=== PATIENT | female | born 1970 | race African-American/Black ===

== ENCOUNTER 2016-06-18 18:01 | Emergency (ER) | payer OTHER ==
[2016-06-18 18:10] VITALS: PULSE 77; TEMP 98.3; BMI 27.3
[2016-06-18 18:11] VITALS: BP 126/81
[2016-06-18] MEDS ORDERED: KETOROLAC TROMETHAMINE 60 MG/2 ML VIAL ONE (18:48)
[2016-06-18] MEDS ORDERED: CYCLOBENZAPRINE HCL 10 MG TABLET (FP) ONE (18:48)
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
== END 2016-06-18 19:22 | disposition home or self-care (01) ==
LOC: JERFT 18:01
DX: M54.5 Low back pain (principal); M54.6 Pain in thoracic spine; V43.52XA Car driver injured in collision with other type car in traffic accident, initial encounter; Y92.481 Parking lot as the place of occurrence of the external cause; Y93.89 Activity, other specified; Y99.8 Other external cause status
CPT/HCPCS: 99281-25

== ENCOUNTER 2017-01-26 10:01 | Emergency (ER) | payer OTHER ==
[2017-01-26 10:11] VITALS: BMI 28.5
--- NOTE | 2017-01-26 10:15 | PDOC ---
History of Present Illness - General Chief Complaint: Chest Pain Stated Complaint: PAIN/ CHEST, BACK Time Seen by Provider: 01/26/17 10:15 Past History - Past Medical History Allergies/Adverse Reactions: Allergies Allergy/AdvReac Type Severity Reaction Status Date / Time No Known Allergies Allergy Verified 01/26/17 10:07 Home Medications: Ambulatory Orders Naproxen [Naprosyn -] 500 mg PO BID #14 tablet 06/18/16 Cardiac Disorders: No COPD: No Other medical history: CERVICAL SPINE HERNIATION - Surgical History Abdominal Surgery: Yes (umbilical hernia repair as child) Cholecystectomy: Yes - Suicide/Smoking/Psychosocial Hx Smoking History: Never smoked Have you smoked in the past 12 months: No Hx Alcohol Use: No Drug/Substance Use Hx: No Substance Use Type: None Hx Substance Use Treatment: No *Physical Exam - Vital Signs Last Vital Signs Temp Pulse Resp BP Pulse Ox 98.1 F 66 19 113/65 99 01/26/17 10:07 01/26/17 10:07 01/26/17 10:07 01/26/17 10:07 01/26/17 10:07
--- NOTE | 2017-01-26 10:34 | PDOC ---
History of Present Illness - General History Source: Patient Exam Limitations: No Limitations - History of Present Illness Initial Comments: 01/26/17 11:24 The patient is a 46 year old female with significant PMH of cervical spine herniation who presents to the emergency department with constant right neck/ back discomfort radiating to her right chest that began 2 days ago. The patient states she was playing with her grandson who pushed her backwards while sitting causing her to feel right back discomfort. The patient notes the neck/back discomfort is worsened by movement. The patient denies any fall. The patient reports she took old naproxen with no relief of symptoms. The patient notes this back discomfort is similar to her muscle spasms in the past. The patient also states she has had some shortness of breath secondary to her neck/back discomfort. The patient denies numbness or tingling to the extremities headache and dizziness. Denies fever, chills, nausea, vomit, diarrhea and constipation. Allergies: NKA Past surgical history: None reported. Social history: No reported alcohol, cigarette, or drug use. <Bita Jolley - Last Filed: 01/26/17 12:19> <Chele Soto - Last Filed: 01/26/17 12:27> - General Chief Complaint: Chest Pain Stated Complaint: PAIN/ CHEST, BACK Time Seen by Provider: 01/26/17 10:15 Past History <Bita Jolley - Last Filed: 01/26/17 12:19> - Past Medical History Cardiac Disorders: No COPD: No Other medical history: CERVICAL SPINE HERNIATION - Surgical History Abdominal Surgery: Yes (umbilical hernia repair as child) Cholecystectomy: Yes - Suicide/Smoking/Psychosocial Hx Smoking History: Never smoked Have you smoked in the past 12 months: No Hx Alcohol Use: No Drug/Substance Use Hx: No Substance Use Type: None Hx Substance Use Treatment: No <Chele Soto - Last Filed: 01/26/17 12:27> - Past Medical History Allergies/Adverse Reactions: Allergies Allergy/AdvReac Type Severity Reaction Status Date / Time No Known Allergies Allergy Verified 01/26/17 10:07 Home Medications: Ambulatory Orders Naproxen [Naprosyn -] 500 mg PO BID PRN #14 tablet 01/26/17 Oxycodone HCl/Acetaminophen [Percocet 5-325 mg Tablet] 1 - 2 tab PO TID PRN #10 tab MDD 6 01/26/17 Review of Systems - Review of Systems Constitutional: No: Chills, Fever Respiratory: No: Shortness of Breath Cardiac (ROS): Yes: See HPI. No: Edema, Palpitations, Syncope ABD/GI: No: Nausea, Vomiting Musculoskeletal: Yes: Muscle Pain. No: Joint Pain Neurological: No: Headache, Tingling, Weakness All Other Systems: Reviewed and Negative <Chele Soto - Last Filed: 01/26/17 12:27> *Physical Exam - Vital Signs Last Vital Signs Temp Pulse Resp BP Pulse Ox 98.1 F 66 19 113/65 99 01/26/17 10:07 01/26/17 10:07 01/26/17 10:07 01/26/17 10:07 01/26/17 10:07 - Physical Exam Comments: 01/26/17 11:34 GENERAL: The patient is awake, alert, and fully oriented, in no acute distress. HEAD: Normal with no signs of trauma. EYES: Pupils equal, round and reactive to light, extraocular movements intact, sclera anicteric, conjunctiva clear with no pallor. ENT: Ears normal, nares patent, oropharynx clear without exudates. Moist mucous membranes. NECK: Normal range of motion, supple without lymphadenopathy, JVD, or masses. LUNGS: Breath sounds equal, clear to auscultation bilaterally. No wheeze/ crackles. HEART: Regular rate and rhythm, normal S1 and S2 without murmur or rub. ABDOMEN: Soft/nontender/nondistended. BS wnl. No guarding or rebound. No palpable masses. No hepatosplenomegaly. BACK: (+) Reproducible tenderness to the trapezium, no swelling or bruising. EXTREMITIES: Normal range of motion, no edema. No clubbing or cyanosis. No cords, erythema, or tenderness. NEUROLOGICAL: Cranial nerves II through XII grossly intact. Normal speech, normal gait. PSYCH: Normal mood, normal affect. SKIN: Warm, Dry, normal turgor, no rashes or lesions noted. <Bita Jolley - Last Filed: 01/26/17 12:19> - Vital Signs Last Vital Signs Temp Pulse Resp BP Pulse Ox 98.1 F 66 19 113/65 99 01/26/17 10:07 01/26/17 10:07 01/26/17 10:07 01/26/17 10:07 01/26/17 10:07 <Chele Soto - Last Filed: 01/26/17 12:27> Heart Score/ECG Review - History History: Slightly suspicious - Electrocardiogram EKG: Normal - Age Age: 45-65 - Risk Factors Based on the list above the patient has:: 1-2 risk factors #1 ECG reviewed & interpreted by me at: 10:05 General ECG Interpretation: Sinus Rhythm, Normal Rate (61), Normal Intervals ( qtc 412), No acute ischemic changes <Chele Soto - Last Filed: 01/26/17 12:27> ED Treatment Course - Medications Given in the ED: ED Medications Discontinued Medications Generic Name Dose Route Start Last Admin Trade Name Freq PRN Reason Stop Dose Admin Ketorolac Tromethamine 60 mg 01/26/17 10:38 01/26/17 11:05 Toradol Injection - IM 01/26/17 10:39 Not Given ONCE ONE Tramadol HCl 50 mg 01/26/17 10:38 01/26/17 10:45 Ultram - PO 01/26/17 10:39 50 mg ONCE ONE Administration <Bita Jolley - Last Filed: 01/26/17 12:19> Medical Decision Making - Medical Decision Making Exam: Chest PA & LAT Who interpreted: Dr. Eli Reviewed by: Dr. Soto Impression: No definite interval change is identified in comparison to a previous radiographic study of 03/06/2013. <Bita Jolley - Last Filed: 01/26/17 12:19> - Medical Decision Making 01/26/17 10:55 A portion of this note was documented by scribe services under my direction. I have reviewed the details of the note, within reason, and agree with the documentation with the following case summary and management plan written by me. 46-year-old female with no significant past medical history other than episodes of muscle strain in the past presents with 2 days of constant right neck/back discomfort. Patient was playing with her grandson rocking back and forth, felt a twinge in her right back that has been worsening since then. Constant, sharp, radiating to her right chest, worse with any positional changes, not associated with exertion. At baseline, has on limited exercise tolerance. Denies any direct injury, took some old naproxen without relief, presents for evaluation. States pain is similar to past muscle spasm pain she has had. No PE risk factors or symptoms of DVT. Vital signs normal. Well-appearing, seated on stretcher, on her cell phone Some limited range of motion on rotation of her neck secondary to discomfort Reproducible discomfort to palpation over the right trapezius without swelling or ecchymosis Neurologically and neurovascularly intact Heart and lungs are clear No leg edema 46-year-old female presents with right trapezial muscle strain, no red flags on history or physical exam to suggest primary cardiac pulmonary process. Neurologically intact. Chest x-ray, EKG Declines Toradol, trial of tramadol Reassess and dispo accordingly 01/26/17 12:21 CXR without acute pathology. Feels slightly better, no respiratory distress. Agrees with d/c plan, prefers percocet over tramadol. Family at bedside will bring her home. understands return criteria. <Chele Soto - Last Filed: 01/26/17 12:27> *DC/Admit/Observation/Transfer - Attestations Scribe Attestion: 01/26/17 11:34 Documentation prepared by Bita Jolley, acting as medical lab assistant for Chele Soto MD. <Bita Jolley - Last Filed: 01/26/17 12:19> <Chele Soto - Last Filed: 01/26/17 12:27> Diagnosis at time of Disposition: Strain of right trapezius muscle Qualifiers: Encounter type: initial encounter Qualified Code(s): S46.811A - Strain of other muscles, fascia and tendons at shoulder and upper arm level, right arm, initial encounter - Discharge Dispostion Disposition: HOME Condition at time of disposition: Improved - Prescriptions Prescriptions: Naproxen [Naprosyn -] 500 mg PO BID PRN #14 tablet PRN Reason: Pain Oxycodone HCl/Acetaminophen [Percocet 5-325 mg Tablet] 1 - 2 tab PO TID PRN #10 tab MDD 6 PRN Reason: Pain - Referrals Referrals: Tevin David MD [Staff Physician] - - Patient Instructions Printed Discharge Instructions: Whiplash Additional Instructions: Activity as tolerated. Stay hydrated. A chest x-ray today was normal. Your symptoms are likely due to muscle strain, but there could be an element of herniated disc as well. Take naproxen 500 mg as prescribed twice daily for 3 days, preferably with food. Take Percocet as prescribed as needed for severe pain, Percocet can make you lightheaded so take proper precautions. Continue your medications as previously prescribed by your physician. You should follow up with your primary doctor or Dr. David as soon as possible regarding today's emergency department visit. If symptoms persist, MRI imaging can be useful in determining the cause. Return to the emergency department for any new or concerning symptoms, particularly persistent or worsening pain, numbness or weakness in your arm, chest pain or difficulty breathing.
[2017-01-26] MEDS ORDERED: traMADol HCL 50 MG TABLET PO ONE (10:38)
[2017-01-26] MEDS ORDERED: KETOROLAC TROMETHAMINE 60 MG/2 ML VIAL IM ONE (10:38)
[2017-01-26] MEDS ORDERED: traMADol HCL 50 MG TABLET ONE (10:41)
[2017-01-26] MEDS ORDERED: KETOROLAC TROMETHAMINE 60 MG/2 ML VIAL ONE (10:41)
[2017-01-26 12:53] VITALS: BP 120/62; PULSE 73; TEMP 97.8
--- NOTE | 2017-01-26 14:36 | EKG ---
Test Reason : Blood Pressure : / mmHG Vent. Rate : 061 BPM Atrial Rate : 061 BPM P-R Int : 132 ms QRS Dur : 086 ms QT Int : 410 ms P-R-T Axes : 019 065 054 degrees QTc Int : 412 ms NORMAL SINUS RHYTHM NORMAL ECG WHEN COMPARED WITH ECG OF 06-MAR-2013 07:23, NO SIGNIFICANT CHANGE WAS FOUND Confirmed by ALLA RICHARDS MD ([id number]) on 01/26/2017 2:36:02 PM Referred By: Confirmed By:ALLA RICHARDS MD
== END 2017-01-26 12:52 | disposition home or self-care (01) ==
LOC: JER 10:01
DX: S46.811A Strain of other muscles, fascia and tendons at shoulder and upper arm level, right arm, initial encounter (principal); Q05.5 Cervical spina bifida without hydrocephalus
CPT/HCPCS: 71020-TC; 93005; 93010; 99283-25

== ENCOUNTER 2017-01-30 14:38 | Emergency (ER) | payer OTHER ==
[2017-01-30 14:50] VITALS: BP 100/71; PULSE 69; TEMP 98.4; BMI 28.5
[2017-01-30] MEDS ORDERED: diazePAM 5 MG TABLET PO ONE (15:29)
[2017-01-30] MEDS ORDERED: KETOROLAC TROMETHAMINE 60 MG/2 ML VIAL IM ONE (15:29)
--- NOTE | 2017-01-30 15:30 | PDOC ---
"History of Present Illness - General Chief Complaint: Pain, Acute Stated Complaint: NECK PAIN Time Seen by Provider: 01/30/17 15:04 History Source: Patient Exam Limitations: No Limitations - History of Present Illness Initial Comments: 01/30/17 15:55 My chief complaint: Worsening right-sided neck pain History of present illness: Patient is a 46-year-old female with a history of cervical and lumbar herniation here for the second time due to pain to her right neck that worsened today. Patient was originally seen here on 01/26/2017 due to her grandchild jumping on her back and neck area causing pain to the area. Patient reports that she had been taking Naprosyn, Percocet with some relief of pain yesterday however today patient woke and pain is worse on right lateral neck patient also feels slight tingling in her fourth and fifth digits. Patient reports that she had been on pain management but has not been on for quite some time presently. Patient denies doing anything strenuous yesterday that might have caused pain to be worse today. Patient denies any chance of . Timing/Duration: getting worse Severity: severe Past History - Past Medical History Allergies/Adverse Reactions: Allergies Allergy/AdvReac Type Severity Reaction Status Date / Time No Known Allergies Allergy Verified 01/30/17 14:45 Home Medications: Ambulatory Orders Cyclobenzaprine HCl [Flexeril -] 10 mg PO Q8H PRN #21 tablet 01/30/17 Naproxen [Naprosyn -] 500 mg PO BID PRN #14 tablet 01/30/17 Oxycodone HCl/Acetaminophen [Percocet 5-325 mg Tablet] 1 - 2 tab PO Q6H PRN #20 tablet MDD 8 01/30/17 Cardiac Disorders: No COPD: No Other medical history: herniated disc on neck and back - Surgical History Abdominal Surgery: Yes (umbilical hernia repair as child) Cholecystectomy: Yes - Suicide/Smoking/Psychosocial Hx Smoking History: Never smoked Have you smoked in the past 12 months: No Hx Alcohol Use: No Drug/Substance Use Hx: No Substance Use Type: None Hx Substance Use Treatment: No Review of Systems - Review of Systems Able to Perform ROS?: Yes Constitutional: No: Symptoms Reported HEENTM: No: Symptoms Reported Respiratory: No: Symptoms reported Cardiac (ROS): No: Symptoms Reported ABD/GI: No: Symptoms Reported : No: Symptoms Reported Musculoskeletal: Yes: Neck Pain (right sided ) Integumentary: No: Symptoms Reported Neurological: Yes: Tingling (rt. 4th & 5th fingers) *Physical Exam - Vital Signs Last Vital Signs Temp Pulse Resp BP Pulse Ox 98.4 F 69 18 100/71 100 01/30/17 14:46 01/30/17 14:46 01/30/17 14:46 01/30/17 14:46 01/30/17 14:46 - Physical Exam General Appearance: Yes: Appropriately Dressed Neck: positive: Tender (right lateral ), Decreased range of motion, Tender lateral (rt. lateral neck ). negative: Lymphadenopathy (R), Lymphadenopathy (L) , Rigidity, Tender midline Respiratory/Chest: positive: Lungs Clear, Normal Breath Sounds. negative: Chest Tender, Respiratory Distress Cardiovascular: positive: Regular Rhythm, Regular Rate, S1, S2 Integumentary: positive: Normal Color Neurologic: positive: Alert, Normal Response, Motor Strength 5/5 (upper b/l), Responsive. negative: Respond to painful stimul, Numbness, Sensory Deficit ( rt. arm, hand ) Medical Decision Making - Medical Decision Making Patient is a 46-year-old female with a history of cervical and lumbar herniation here for the second time due to pain to her right neck that worsened today. Patient was originally seen here on 01/26/2017 due to her grandchild jumping on her back and neck area causing pain to the area. Patient reports that she had been taking Naprosyn, Percocet with some relief of pain yesterday however today patient woke and pain is worse on right lateral neck patient also feels slight tingling in her fourth and fifth digits. Patient denies any radiation of pain down her right arm presently. Patient reports that she had been on pain management but has not been on for quite some time presently. Patient denies doing anything strenuous yesterday that might have caused pain to be worse today. Patient denies any chance of . She reports some muscle spasming of her right lateral neck today. right lateral neck pain PLAN: valium 5 mg po now Toradol 60 mg IM now follow up with your orthpedist [employer] checked 01/30/17 15:55 Drug Utilization Report below displays all of the controlled substance prescriptions, if any, that your patient has filled in the last twelve months. The information displayed on this report is compiled from pharmacy submissions to the Department, and accurately reflects the information as submitted by the pharmacies. This report was requested by: Shayy Malagon | Reference #: [id number] Others' Prescriptions Patient Name: Zainab Meneses Date: 1970 Address: [address] [place] [address] Sex: Female Rx Written Rx Dispensed Drug Quantity Days Supply Prescriber Name 01/26/2017 01/27/2017 oxycodone-acetaminophen 5-325 mg tab 10 1 Chele Soto) 01/30/17 15:57 01/30/17 16:30 pt. continues to c/o pain will give percocet 5mg/325mg 01/30/17 19:59 naprosyn 500 mg bid prn pain # 13 tabs percocet 5mg/325 mg 1-2tabs q 6 hr prn pain #20 tabs *DC/Admit/Observation/Transfer Diagnosis at time of Disposition: Neck pain on right side - Discharge Dispostion Disposition: HOME Condition at time of disposition: Stable - Prescriptions Prescriptions: Cyclobenzaprine HCl [Flexeril -] 10 mg PO Q8H PRN #21 tablet PRN Reason: Muscle Spasms Naproxen [Naprosyn -] 500 mg PO BID PRN #14 tablet PRN Reason: Pain Oxycodone HCl/Acetaminophen [Percocet 5-325 mg Tablet] 1 - 2 tab PO Q6H PRN #20 tablet MDD 8 PRN Reason: Pain - Referrals - Patient Instructions Additional Instructions: Follow up with your orthopedist if as soon as possible for further evaluation Avoid lifting anything or any strenuous activities Return to emergency room if symptoms worsen Patient voiced understanding of discharge instructions and all questions were answered - Post Discharge Activity"
[2017-01-30] MEDS ORDERED: diazePAM 5 MG TABLET ONE (15:39)
[2017-01-30] MEDS ORDERED: KETOROLAC TROMETHAMINE 60 MG/2 ML VIAL ONE (15:39)
== END 2017-01-30 16:55 | disposition home or self-care (01) ==
LOC: JERFT 14:38
PROC: 3E0233Z Introduction of Anti-inflammatory into Muscle, Percutaneous Approach (ICD-10-PCS; principal; 2017-01-30)
DX: M54.2 Cervicalgia (principal)
CPT/HCPCS: 96372; 99281-25

== ENCOUNTER 2017-03-28 10:25 | Emergency (ER) | payer OTHER ==
[2017-03-28 10:31] VITALS: BP 122/68; PULSE 71; TEMP 98
--- NOTE | 2017-03-28 11:07 | PDOC ---
History of Present Illness - General Chief Complaint: Respiratory Stated Complaint: COUGH Time Seen by Provider: 03/28/17 11:06 Past History - Past Medical History Allergies/Adverse Reactions: Allergies Allergy/AdvReac Type Severity Reaction Status Date / Time No Known Allergies Allergy Verified 03/28/17 10:31 Home Medications: Ambulatory Orders Cyclobenzaprine HCl [Flexeril -] 10 mg PO Q8H PRN #21 tablet 01/30/17 Naproxen [Naprosyn -] 500 mg PO BID PRN #14 tablet 01/30/17 Oxycodone HCl/Acetaminophen [Percocet 5-325 mg Tablet] 1 - 2 tab PO Q6H PRN #20 tablet MDD 8 01/30/17 Cardiac Disorders: No COPD: No - Surgical History Abdominal Surgery: Yes (umbilical hernia repair as child) Cholecystectomy: Yes - Suicide/Smoking/Psychosocial Hx Smoking History: Never smoked Have you smoked in the past 12 months: No Hx Alcohol Use: No Drug/Substance Use Hx: No Substance Use Type: None Hx Substance Use Treatment: No *Physical Exam - Vital Signs Last Vital Signs Temp Pulse Resp BP Pulse Ox 98 F 71 18 122/68 99 03/28/17 10:28 03/28/17 10:28 03/28/17 10:28 03/28/17 10:28 03/28/17 10:28
[2017-03-28] MEDS ORDERED: ALBUTEROL SO4 2.5/IPRATROPIUM 0.5 INH SOL 3 ML VIAL.NEB. NEB ONE ×2 (11:12→11:21)
[2017-03-28] MEDS ORDERED: predniSONE 20 MG TABLET (UD) ONE (11:13)
[2017-03-28] MEDS ORDERED: predniSONE 20 MG TABLET (UD) PO ONE (11:22)
--- NOTE | 2017-03-28 11:28 | PDOC ---
History of Present Illness - General Chief Complaint: Respiratory Stated Complaint: COUGH Time Seen by Provider: 03/28/17 11:06 History Source: Patient Exam Limitations: No Limitations - History of Present Illness Initial Comments: 03/28/17 11:23 And came to emergency department with persistent cough 2 weeks. States 2-1/2 3 weeks ago all of her family was ill with a respiratory illness with cough, fevers, chills and body aches. Sounds as though was probable influenza type illness. Since that time patient has had persistent cough with no fevers. Timing/Duration: reports: constant Severity: reports: mild, moderate Associated Symptoms: reports: cough, fever/chills, nasal congestion Past History - Travel Traveled outside of the country in the last 30 days: No Close contact w/someone who was outside of country & ill: No - Past Medical History Allergies/Adverse Reactions: Allergies Allergy/AdvReac Type Severity Reaction Status Date / Time No Known Allergies Allergy Verified 03/28/17 10:31 Home Medications: Ambulatory Orders Cyclobenzaprine HCl [Flexeril -] 10 mg PO Q8H PRN #21 tablet 01/30/17 Naproxen [Naprosyn -] 500 mg PO BID PRN #14 tablet 01/30/17 Oxycodone HCl/Acetaminophen [Percocet 5-325 mg Tablet] 1 - 2 tab PO Q6H PRN #20 tablet MDD 8 01/30/17 Albuterol Sulfate Inhaler - [Ventolin HFA Inhaler -] 1 - 2 inh PO Q4H #1 inhaler 03/28/17 predniSONE [Deltasone -] 20 mg PO BID #8 tablet 03/28/17 Cardiac Disorders: No COPD: No - Surgical History Abdominal Surgery: Yes (umbilical hernia repair as child) Cholecystectomy: Yes - Suicide/Smoking/Psychosocial Hx Smoking History: Never smoked Have you smoked in the past 12 months: No Hx Alcohol Use: No Drug/Substance Use Hx: No Substance Use Type: None Hx Substance Use Treatment: No Review of Systems - Review of Systems Able to Perform ROS?: Yes Is the patient limited Hungarian proficient: Yes Constitutional: Yes: Symptoms Reported, See HPI, Malaise HEENTM: Yes: See HPI. No: Symptoms Reported Respiratory: Yes: Symptoms reported, See HPI, Cough, Wheezing Musculoskeletal: Yes: Symptoms Reported, See HPI Integumentary: No: Symptoms Reported Neurological: Yes: See HPI. No: Symptoms reported, Headache All Other Systems: Reviewed and Negative *Physical Exam - Vital Signs Last Vital Signs Temp Pulse Resp BP Pulse Ox 98 F 71 18 122/68 99 03/28/17 10:28 03/28/17 10:28 03/28/17 10:28 03/28/17 10:28 03/28/17 10:28 - Physical Exam General Appearance: Yes: Nourished, Appropriately Dressed, Apparent Distress, Mild Distress HEENT: positive: JAZMYNE, Normal ENT Inspection, TMs Normal, Pharynx Normal Neck: positive: Supple. negative: Lymphadenopathy (R), Lymphadenopathy (L) Respiratory/Chest: positive: Lungs Clear. 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, Fully Oriented, Alert, Normal Mood/ Affect, Normal Response, Motor Strength 5/5 Progress Note - Progress Note Progress Note: Persistent cough much improved after DuoNeb and prednisone, will continue albuterol inhaler and have follow-up with PMD *DC/Admit/Observation/Transfer Diagnosis at time of Disposition: Reactive airway disease with wheezing Qualifiers: Asthma severity: mild Asthma persistence: intermittent Asthma complication type : uncomplicated Qualified Code(s): J45.20 - Mild intermittent asthma, uncomplicated - Discharge Dispostion Disposition: HOME Condition at time of disposition: Stable Admit: No - Prescriptions Prescriptions: Albuterol Sulfate Inhaler - [Ventolin HFA Inhaler -] 1 - 2 inh PO Q4H #1 inhaler predniSONE [Deltasone -] 20 mg PO BID #8 tablet - Referrals - Patient Instructions Printed Discharge Instructions: DI for Reactive Airway Disease-Adult Additional Instructions: Rest, drink lots of fluids: Teas, water, soups, Pedialyte Saltwater gargles Steamy showers/seem to face break up mucus Avoid contact with others until fevers and cough resolved Lots of handwashing and good hygiene Continue [id number] medications for symptomatic relief Tylenol or Motrin for fever and pain Continue albuterol nebulizers every 4-6 hours for the next 2 days then as needed for continued cough Prednisone as directed until completed Followup with private physician in one to 2 days Return to emergency department / pediatric hospital for worsened symptoms, fevers, dehydration - Post Discharge Activity Forms/Work/School Notes: Back to Work
== END 2017-03-28 11:48 | disposition home or self-care (01) ==
LOC: JERFT 10:25
PROC: 3E0F7GC Introduction of Other Therapeutic Substance into Respiratory Tract, Via Natural or Artificial Opening (ICD-10-PCS; principal; 2017-03-28)
DX: J45.20 Mild intermittent asthma, uncomplicated (principal)
CPT/HCPCS: 94640; 99281-25

== ENCOUNTER 2017-05-04 09:12 | Day surgery (SDC) | payer OTHER ==
[2017-05-03 12:27] VITALS: BMI 29.9
[2017-05-04] MEDS ORDERED: PROPOFOL 20 ML ONE ×2 (09:45)
[2017-05-04 10:27] VITALS: TEMP 97.8
[2017-05-04 11:45] VITALS: BP 133/63; PULSE 70
[2017-05-04 12:26] LABS: ALBUMIN 4.2 g/dl (3.4-5.0); ALK PHOS 59 U/L (45-117); ANION GAP 6 (8-16); BILIRUBIN,DIRECT < 0.2 mg/dL (0.0-0.2); BILIRUBIN,TOTAL 0.4 mg/dL (0.2-1.0); BLOOD UREA NITROGEN 16 mg/dL (7-18); CALCIUM 8.9 mg/dL (8.5-10.1); CHLORIDE 107 mmol/L (98-107); CO2 25 mmol/L (21-32); CREATININE 1.1 mg/dL (0.55-1.02); GLUCOSE,RANDOM 93 mg/dL (74-106); POTASSIUM 4.7 mmol/L (3.5-5.1); SGOT/AST 29 U/L (15-37); SGPT/ALT 42 U/L (12-78); SODIUM 138 mmol/L (136-145)
[2017-05-05 06:06] LABS: HBSAG SCREEN Negative (Negative); HEP B CORE AB, TOT Negative (Negative)
[2017-05-05 08:07] LABS: SERUM IRON SATURATION 44 % (15-55); TOTAL IRON BINDING CAPACITY 371 ug/dL (250-450); UIBC 206 ug/dL (131-425)
[2017-05-06 16:28] LABS: ALPHA-1-ANTITRYPSIN 153 mg/dL (90-200)
== END 2017-05-04 11:45 | disposition home or self-care (01) ==
LOC: JASU-ENDO 09:12
PROVIDERS: ATTEND Internal Medicine Gastroenterology
PROC: 0DJD8ZZ Inspection of Lower Intestinal Tract, Via Natural or Artificial Opening Endoscopic (ICD-10-PCS; principal; 2017-05-04 10:15)
DX: Z12.11 Encounter for screening for malignant neoplasm of colon (principal); K64.8 Other hemorrhoids
CPT/HCPCS: 36415; 80048; 80076; 82103; 82104; 82390; 82728; 83516; 83540; 83550; 86038; 86704; 86706; 86708; 87340

== ENCOUNTER 2017-05-11 09:10 | Day surgery (SDC) | payer OTHER ==
[2017-05-10 14:00] VITALS: BMI 29.9
[2017-05-11] MEDS ORDERED: PROPOFOL 20 ML ONE ×2 (10:10)
[2017-05-11] MEDS ORDERED: LIDOCAINE HCL/PF 2% SDV 5ML VIAL ONE (10:10)
[2017-05-11 10:59] VITALS: TEMP 98.2
[2017-05-11 11:54] VITALS: BP 112/71; PULSE 60
--- NOTE | 2017-05-12 16:13 | PATH ---
Surgical Pathology Report Patient Name: BRANDIE FERRER [facility]. Rec. #: [id number] /Age/Gender: 1970 (Age: 47) / F Account: [id number] Location: U-ENDOSCOPY Taken: 05/11/2017 Received: 05/11/2017 Reported: 05/12/2017 Physicians: Yasmani Schreiber D.O. Specimen(s) Received A: BX ANTRUM EROSION B: BX BODY/ANGULARIS C: BX DISTAL ESOPHAGUS Clinical History Preoperative diagnosis: GERD Postop diagnosis: GERD with reflux, gastritis Final Diagnosis A. STOMACH, ANTRAL EROSION, BIOPSY: GASTRIC ANTRAL MUCOSA WITH MILD CHRONIC GASTRITIS. IMMUNOHISTOCHEMICAL STAIN FOR H. PYLORI IS NEGATIVE. B. STOMACH, BODY/ANGULARIS BIOPSY: GASTRIC BODY MUCOSA WITH MODERATE CHRONIC GASTRITIS. IMMUNOHISTOCHEMICAL STAIN FOR H. PYLORI IS NEGATIVE. C. DISTAL ESOPHAGUS, BIOPSY: SQUAMOUS MUCOSA WITH MODERATE TO SEVERE REFLUX TYPE CHANGES AND FOCAL SUPERFICIAL ACUTE INFLAMMATION. FUNGAL SPECIAL STAIN (PAS) IS NEGATIVE. Electronically Signed Flor Dowling M.D. Gross Description A. Received in formalin, labeled "biopsy antral erosion" are 2 barr, irregular portions of soft tissue measuring 0.2 and 0.3 cm. in greatest dimension. The specimens are submitted in toto in one cassette. B. Received in formalin, labeled "biopsy body/angularis" are 2 barr, irregular portions of soft tissue measuring 0.2 and 0.6 cm. in greatest dimension. The specimens are submitted in toto in one cassette. C. Received in formalin, labeled "biopsy distal esophagus" is a barr, irregular portion of soft tissue measuring 0.3 cm. in greatest dimension. The specimen is submitted in toto in one cassette. 05/11/2017 saudi05/11/2017
== END 2017-05-11 11:55 | disposition home or self-care (01) ==
LOC: JASU-ENDO 09:10
PROVIDERS: ATTEND Internal Medicine Gastroenterology
PROC: 0DB68ZX Excision of Stomach, Via Natural or Artificial Opening Endoscopic, Diagnostic (ICD-10-PCS; 2017-05-11)
PROC: 0DB48ZX Excision of Esophagogastric Junction, Via Natural or Artificial Opening Endoscopic, Diagnostic (ICD-10-PCS; principal; 2017-05-11 10:15)
DX: K21.0 Gastro-esophageal reflux disease with esophagitis (principal); K25.9 Gastric ulcer, unspecified as acute or chronic, without hemorrhage or perforation
CPT/HCPCS: 88305-TC; 88312-TC; 88342-TC

== ENCOUNTER 2021-01-14 12:03 | Emergency (ER) | payer OTHER ==
[2021-01-14 12:17] VITALS: BP 124/74; PULSE 65; TEMP 97.8; BMI 31.3
== END 2021-01-14 13:00 | disposition left against medical advice (07) ==
LOC: JERFT 12:03
DX: M54.2 Cervicalgia (principal)
CPT/HCPCS: 99281-25

== ENCOUNTER 2021-01-14 23:20 | Emergency (ER) | payer OTHER ==
[2021-01-14 23:40] VITALS: BP 134/77; PULSE 60; TEMP 97.7; BMI 34.4
[2021-01-15] MEDS ORDERED: ACETAMINOPHEN 500 MG TABLET (FP) PO ONE (00:11)
[2021-01-15] MEDS ORDERED: MECLIZINE HCL 25 MG TABLET (FP) PO ONE (00:11)
[2021-01-15] MEDS ORDERED: KETOROLAC TROMETHAMINE 15 MG/ML VIAL IM ONE (00:12)
[2021-01-15] MEDS ORDERED: MECLIZINE HCL 25 MG TABLET (FP) ONE (00:13)
[2021-01-15] MEDS ORDERED: ACETAMINOPHEN 325 MG TABLET (FP) ONE (00:13)
[2021-01-15] MEDS ORDERED: METHOCARBAMOL 500 MG TABLET ONE (00:14)
[2021-01-15] MEDS ORDERED: METHOCARBAMOL 500 MG TABLET PO ONE (00:14)
[2021-01-15] MEDS ORDERED: KETOROLAC TROMETHAMINE 15 MG/ML VIAL ONE (00:18)
== END 2021-01-15 00:49 | disposition home or self-care (01) ==
LOC: JER 23:20
PROC: 3E0233Z Introduction of Anti-inflammatory into Muscle, Percutaneous Approach (ICD-10-PCS; principal; 2021-01-14)
DX: S13.4XXA Sprain of ligaments of cervical spine, initial encounter (principal); R42 Dizziness and giddiness; V89.2XXA Person injured in unspecified motor-vehicle accident, traffic, initial encounter
CPT/HCPCS: 99284-25

== ENCOUNTER 2023-03-12 12:20 | Emergency (ER) | payer OTHER ==
[2023-03-12 12:55] VITALS: BP 127/68; PULSE 66; RESP 18; TEMP 98.2; BMI 36.3
== END 2023-03-12 14:26 | disposition home or self-care (01) ==
LOC: JERFT 12:20
DX: M25.562 Pain in left knee (principal); M25.522 Pain in left elbow; W19.XXXA Unspecified fall, initial encounter; Y99.0 Civilian activity done for income or pay
CPT/HCPCS: 73070-TC-LT-FY; 73562-TC-LT-FY; 99284-25

== ENCOUNTER → 2024-04-26 | Day surgery (SDC) | payer OTHER | END | disposition home or self-care (01) | LOC: JRADIR 09:59 | PROVIDERS: ATTEND Internal Medicine Endocrinology, Diabetes & Metabolism | PROC: 0GBG3ZX Excision of Left Thyroid Gland Lobe, Percutaneous Approach, Diagnostic (ICD-10-PCS; principal; 2024-04-26) | DX: E04.1 Nontoxic single thyroid nodule (principal) | CPT/HCPCS: 10005; 76942; 88173; 88305-TC ==